=== PATIENT | male | born 1940 ===

== ENCOUNTER 2025-02-06 08:46 | Day surgery (SDC) | payer BC ==
[~2025-02-06] VITALS: Ht 170.2 cm; Wt 112.2 kg
[2025-02-06] MEDS ORDERED: ALLOPURINOL100 M1 (09:12)
[2025-02-06] MEDS ORDERED: LABETALOL (09:12)
[2025-02-06] MEDS ORDERED: ATORVASTATIN TAB 40M (09:12)
[2025-02-06] MEDS ORDERED: Aspir 8181 MG (09:13)
== END 2025-02-06 11:12 | disposition home or self-care (01) ==
LOC: ORSCSDS 08:46
PROVIDERS: Internal Medicine Gastroenterology
PROC: 0DJD8ZZ Inspection of Lower Intestinal Tract, Via Natural or Artificial Opening Endoscopic (ICD-10-PCS; principal; 2025-02-06 10:15)
DX: R19.4 Change in bowel habit (principal); R14.0 Abdominal distension (gaseous); E11.22 Type 2 diabetes mellitus with diabetic chronic kidney disease; N18.30 Chronic kidney disease, stage 3 unspecified; I12.9 Hypertensive chronic kidney disease with stage 1 through stage 4 chronic kidney disease, or unspecified chronic kidney disease; E78.5 Hyperlipidemia, unspecified; I25.10 Atherosclerotic heart disease of native coronary artery without angina pectoris; Z79.82 Long term (current) use of aspirin; Z79.899 Other long term (current) drug therapy
CPT/HCPCS: 82947; J2704; J7120

== ENCOUNTER 2025-02-27 07:46 | Day surgery (SDC) | payer BC ==
[~2025-02-27] VITALS: Ht 170.2 cm; Wt 112.7 kg
[~2025-02-27 07:46] MED LIST: ALLOPURINOL100 M1; ATORVASTATIN TAB 40M; Aspir 8181 MG; LABETALOL
[2025-02-27 08:28] VITALS: BP 158/60
--- NOTE | 2025-02-27 08:47 | NUR ---
Ambulatory in Day Surgery accompanied by his . History, Chart, Medications and Allergies reviewed before start of procedure. Patient confirms NPO status and agrees with scheduled surgery. Pre-Op teaching done. Pt verbalizes understanding. Patient States Post-Procedure ride home has been arranged.
--- NOTE | 2025-02-27 09:16 | NUR ---
02/27/25 0916 Taye Kumar MONITOR INTACT WITH CONTINUOUS PULSE OXIMETRY, CONTINUOUS END TITAL CO2, 3-LEAD EKG AND INTERMITTENT BLOOD PRESSURE. O2 VIA POM INTACT THROUGHOUT SEDATION/PROCEDURE.
[2025-02-27 11:00] VITALS: BP 132/92
[2025-02-27 11:15] VITALS: BP 136/74
--- NOTE | 2025-02-27 11:32 | NUR ---
TO STEP POST PROCEDURE. REDD PO WELL. DENIES PAIN, NAUSEA, SOB. VERBALIZED UNDERSTANDING OF DC INSTRUCTIONS. DC'D IV INTACT. DC'D TO PRIVATE CAR WITH STUDIO ARTIST.
[2025-02-27 13:41] LABS: C DIFFICILE DNA NEGATIVE (Negative)
== END 2025-02-27 11:30 | disposition home or self-care (01) ==
LOC: ORSCMMR 07:46 → ORD 08:15 → ORSCMMR 09:00
PROVIDERS: Internal Medicine Gastroenterology
PROC: 0DBL8ZX Excision of Transverse Colon, Via Natural or Artificial Opening Endoscopic, Diagnostic (ICD-10-PCS; principal; 2025-02-27 09:00)
PROC: 0DBH8ZX Excision of Cecum, Via Natural or Artificial Opening Endoscopic, Diagnostic (ICD-10-PCS; principal; 2025-02-27 09:00)
PROC: 0DBM8ZX Excision of Descending Colon, Via Natural or Artificial Opening Endoscopic, Diagnostic (ICD-10-PCS; principal; 2025-02-27 09:00)
PROC: 0DBN8ZX Excision of Sigmoid Colon, Via Natural or Artificial Opening Endoscopic, Diagnostic (ICD-10-PCS; principal; 2025-02-27 09:00)
PROC: 0DBP8ZX Excision of Rectum, Via Natural or Artificial Opening Endoscopic, Diagnostic (ICD-10-PCS; principal; 2025-02-27 09:00)
DX: R19.7 Diarrhea, unspecified (principal); D12.2 Benign neoplasm of ascending colon; K63.5 Polyp of colon; I48.91 Unspecified atrial fibrillation; E66.01 Morbid (severe) obesity due to excess calories; Z68.38 Body mass index [BMI] 38.0-38.9, adult; Z79.899 Other long term (current) drug therapy; Z79.82 Long term (current) use of aspirin; E11.22 Type 2 diabetes mellitus with diabetic chronic kidney disease; I12.9 Hypertensive chronic kidney disease with stage 1 through stage 4 chronic kidney disease, or unspecified chronic kidney disease; N18.9 Chronic kidney disease, unspecified; Z85.46 Personal history of malignant neoplasm of prostate; Z85.51 Personal history of malignant neoplasm of bladder
CPT/HCPCS: 82947; 87493; 88305; J2704; J7120